=== PATIENT | male | born 1970 | race Caucasian/White ===

== ENCOUNTER 2016-12-08 10:19 | Observation (INO) | payer BC ==
[~2016-12-08] VITALS: Ht 175.3 cm; Wt 102.4 kg
[2016-12-08] MEDS ORDERED: IMITREX100 M2 PO (10:31)
[2016-12-08] MEDS ORDERED: LIPITOR10 M1 PO (10:32)
[2016-12-08] MEDS ORDERED: CEFADROXIL500 M1 PO (10:34)
[2016-12-08] MEDS ORDERED: BACTRIM DS TAB1 EAC2 PO (10:36)
[2016-12-08] MEDS ORDERED: CORGARD20 M2 PO (10:37)
[2016-12-08] MEDS ORDERED: PROAIR HFA8.5 GM INH (10:40)
[2016-12-08 10:55] LABS: BASO % 0.7 % (0-2); BASO ABSOLUTE COUNT 0.1 tho/cmm (0.0-0.2); EOS % 3.7 % (0-7); EOSINOPHIL ABSOLUTE COUNT 0.3 tho/cmm (0.0-0.7); HCT-HEMATOCRIT 46.2 % (36.0-53.5); IMMATURE GRANULOCYTES ABSOLUTE 0.01 tho/cmm (0-0.03); IMMATURE GRANULOCYTES PERCENT 0.1 % (0-0.3); LYMPH % 36.1 % (20-45); LYMPH ABSOLUTE COUNT 3.1 tho/cmm (0.8-4.5); MCHC MEAN CORPUSCULAR HGB CONC 34.6 % (32.0-36.0); MCV (MEAN CELL VOLUME) 89.5 fl (82.0-96.0); MEAN PLATELET VOLUME 9.7 cmc (9.4-12.4); MONO % 7.9 % (0-12); MONOCYTE ABSOLUTE COUNT 0.7 tho/cmm (0.0-1.2); NEUTROPHIL ABSOLUTE COUNT 4.3 tho/cmm (1.6-8.0); NEUTROPHIL-AUTOMATED 4.3 tho/cmm (1.6-8.0); NEUTROPHILS % 51.5 % (40-80); PLATELET COUNT 225 tho/cmm (150-450); RED BLOOD COUNT 5.16 mil/cmm (4.40-5.70); RED CELL DISTRIBUTION WIDTH 12.9 % (12.4-16.4); WHITE BLOOD COUNT 8.4 tho/cmm (4.0-10.0)
[2016-12-08 11:13] LABS: ANION GAP 11 mmol/L (0-20); BLOOD UREA NITROGEN 17 mg/dl (6-24); CALCIUM 8.7 mg/dl (8.5-10.5); CARBON DIOXIDE-VENOUS 26 mmol/L (22-32); CHLORIDE 109 mmol/l (96-110); CREATININE 1.04 mg/dl (0.60-1.30); GLUCOSE 100 mg/dL (70-110); POTASSIUM 4.8 mmol/L (3.7-5.1); SODIUM 141 mmol/L (135-145); eGFR VALUE FOR BLACK >90 mL/Min
[2016-12-08] MEDS ORDERED: ZYRTEC10 M7 PO (11:43)
[2016-12-08] MEDS ORDERED: ADVIL200 M2 PO (11:44)
[2016-12-08] MEDS ORDERED: FLONASE ALLERG9.9 ML (11:44)
[2016-12-08] MEDS ORDERED: AFRIN15 M2 (11:50)
[2016-12-08] MEDS ORDERED: PROTONIX40 M2 PO (16:01)
== END 2016-12-08 16:32 ==
LOC: EDMED 10:19 → EMR2 12:49 → CAR1 12:49
PROVIDERS: Emergency Medicine; ADMIT Internal Medicine Cardiovascular Disease
DX: R07.9 Chest pain, unspecified (principal); I10 Essential (primary) hypertension; E78.5 Hyperlipidemia, unspecified; F17.210 Nicotine dependence, cigarettes, uncomplicated; Z79.899 Other long term (current) drug therapy
CPT/HCPCS: G0378